=== PATIENT | female | born 1960 | race Hispanic/Latino ===

== ENCOUNTER 2024-09-16 21:40 | Emergency (ER) | payer OTHER ==
[2024-09-16] MEDS ORDERED: PROMETHAZINE 25 MG TABLET ONE (22:50)
[2024-09-16] MEDS ORDERED: CEPHALEXIN 250 MG CAP ONE (22:50)
[2024-09-16] MEDS ORDERED: LIDOCAINE 1% 20 ML MDV ONE (22:50)
[2024-09-16] MEDS ORDERED: IBUPROFEN 200 MG TAB PO ONE (22:50)
[2024-09-16] MEDS ORDERED: SMZ./TMP. 800/160 MG TABLET ONE (22:51)
[2024-09-16] MEDS ORDERED: IBUPROFEN 400 MG TAB ONE (22:51)
[2024-09-16] MEDS ORDERED: TRAMADOL HCL 50 MG TAB ONE (22:51)
[2024-09-16 23:08] LABS: Absolute Basophils 0.2 K/uL (0-0.5); Absolute Eosinophils 2.3 K/uL (0-0.5); Absolute Lymphocytes (CBC) 2.9 K/uL (0.7-4.9); Absolute Monocytes 0.8 K/uL (0.1-1.3); Absolute Neutrophil 7.2 K/uL (1.8-8.0); Basophils % 1.2 % (0-1.3); Eosinophils % 17.4 % (0-4.4); Hematocrit 38.8 % (36.0-45.0); Hemoglobin 12.9 g/dL (12.0-15.0); Lymphocytes % 21.4 % (15.3-44.8); MCH 30.2 pg (27.0-35.0); MCHC 33.3 g/dL (32.0-36.0); MCV 90.7 fL (80-100); MPV 8.5 fL (7.6-11.3); Monocytes % 5.9 % (3.3-12.3); Neutrophils % 54.1 % (41.7-73.7); Nucleated Red Blood Cells % 0.1 % (0-0); Platelets 303 thou/uL (152-406); RBC Red Blood Cell Count 4.28 M/uL (3.86-4.86); Red Cell Distribution Width 14.1 % (12.1-15.2)
[2024-09-16 23:25] LABS: Albumin 3.4 g/dL (3.4-5.0); Albumin/Globulin Ratio 0.9 (1.1-1.8); Anion Gap 6.4 mEq/L (5.0-15.0); Bilirubin Total 0.4 mg/dL (0.2-1.0); Globulin 3.7 g/dL (2.3-3.5); Potassium 3.4 mEq/L (3.5-5.1); Protein, Total 7.1 g/dL (6.4-8.2)
--- NOTE | 2024-09-17 00:13 | ER ---
Nurse's Notes [facility] Name: Marlen Pritchard Age: 63 yrs Sex: Female : 1960 Arrival Date: 09/16/2024 Time: 21:40 Bed 13 Private MD: Diagnosis: Cutaneous abscess of abdominal wall;abscess and cellulitis right lower abdominal skin Presentation: 09/16 21:51 Chief complaint: Patient states: she has had a bite on her right hip for approx one ap3 week. patient has been taking antibiotics from [facility]. patient states the bite is not getting better. Coronavirus screen: At this time, the client does not indicate any symptoms associated with coronavirus-19. Ebola Screen: No symptoms or risks identified at this time. Initial Sepsis Screen: Does the patient meet any 2 criteria? No. Patient's initial sepsis screen is negative. Does the patient have a suspected source of infection? No. Patient's initial sepsis screen is negative. Risk Assessment: Do you want to hurt yourself or someone else? Patient reports no desire to harm self or others. Onset of symptoms was September 09, 2024. 21:51 Method Of Arrival: Ambulatory ap3 21:51 Acuity: JUAN FRANCISCO 3 ap3 Triage Assessment: 21:53 Bite description: bite sustained to right inguinal area was sustained one week by an ap3 unknown animal, animal information: vaccination(s) is not applicable. General: Appears in no apparent distress. Behavior is calm, cooperative, appropriate for age. Pain: Complains of pain in right inguinal area. Neuro: Level of Consciousness is awake, alert, obeys commands, Oriented to person, place, time, situation, Appropriate for age. Cardiovascular: Patient's skin is warm and dry. Respiratory: Airway is patent Respiratory effort is even, unlabored, Respiratory pattern is regular, symmetrical. Derm: Wound noted right inguinal area. Historical: - Allergies: 21:52 No Known Allergies; ap3 - PMHx: 21:52 Diabetes mellitus; Hypertensive disorder; Hypercholesterolemia; ap3 - Immunization history:: Client reports receiving the 2nd dose of the Covid vaccine, Flu vaccine is up to date. - Infectious Disease History:: Denies. - Social history:: Smoking status: Patient denies any tobacco usage or history of. - Family history:: not pertinent. Screenin:54 [facility] ED Fall Risk Assessment (Adult) History of falling in the last 3 months, ap3 including since admission No falls in past 3 months (0 pts) Confusion or Disorientation No (0 pts) Intoxicated or Sedated No (0 pts) Impaired Gait No (0 pts) Mobility Assist Device Used No (0 pt) Altered Elimination No (0 pt) Score/Fall Risk Level 0 - 2 = Low Risk Oriented to surroundings, Maintained a safe environment, Educated pt \T\ family on fall prevention, incl call for assistance when getting out of bed, Assessed \T\ reinforced patient's understanding of fall precautions, Hourly rounding (assess needs \T\ fall precautionary measures) done, Used ambulatory aids as needed (educated on \T\ assisted with). Abuse screen: Denies threats or abuse. Nutritional screening: No deficits noted. Tuberculosis screening: No symptoms or risk factors identified. Assessment: 23:06 General: Appears in no apparent distress. comfortable, Behavior is calm, cooperative, rg5 appropriate for age. Pain: Pain currently is 7 out of 10 on a pain scale. Neuro: Level of Consciousness is awake, alert, obeys commands, Oriented to person, place, time. Cardiovascular: Denies chest pain, Patient's skin is warm and dry. Respiratory: Airway is patent Trachea midline Respiratory effort is even, unlabored, Respiratory pattern is regular. GI: Abdomen is round non-distended, Abd is soft and non tender. : No signs and/or symptoms were reported regarding the genitourinary system. EENT: No deficits noted. Derm: Skin has lesions on 2 cm Skin is red, Abscess located on right femoral area is half dollar sized. Musculoskeletal: Circulation, motion, and sensation intact. Range of motion:. 09/17 00:19 Reassessment: Patient and/or family updated on plan of care and expected duration. Pain rg5 level reassessed. Patient is alert, oriented x 3, equal unlabored respirations, skin warm/dry/pink. Patient states feeling better. Patient states symptoms have improved. Vital Signs: 09/16 21:51 BP 154 / 84; Pulse 72; Resp 18; Temp 97.8; Pulse Ox 100% ; Weight 72.12 kg; ap3 23:00 BP 149 / 75; Pulse 71; Resp 18; Temp 98; Pulse Ox 99% on R/A; Pain 7/10; rg5 09/17 00:19 BP 135 / 74; Pulse 70; Resp 17; Pulse Ox 99% on R/A; Pain 3/10; rg5 23:00 Pain Scale: Adult rg 09/17 00:19 Pain Scale: Adult rg5 Suresh Coma Score: 05:35 Eye Response: spontaneous(4). Motor Response: obeys commands(6). Verbal Response: sp4 oriented(5). Total: 15. ED Course: 09/16 21:45 Patient arrived in ED. gm2 21:50 Rod Nolasco MD is Attending Physician. sp4 21:52 Triage completed. ap3 21:55 Arm band placed on right wrist. ap3 22:33 Aram Ibarra, LISET is Primary Nurse. rg5 22:46 CBC with Diff Sent. mm11 22:46 CMP Sent. mm11 22:46 Inserted saline lock: 22 gauge in right antecubital area, using aseptic technique. mm11 Blood collected. Flushed with 10 mL NS. 23:06 Patient has correct armband on for positive identification. Placed in gown. Bed in low rg5 position. Call light in reach. Door closed. Noise minimized. Warm blanket given. 23:06 No provider procedures requiring assistance completed. rg5 09/17 00:20 Provided Education on: post er care. rg5 00:20 IV discontinued, bleeding controlled, No redness/swelling at site. Pressure dressing rg5 applied. Administered Medications: 09/16 23:04 Drug: Trimethoprim-Sulfamethoxazole PO (160 mg-800 mg (DS) 1 tablet PO once Route: PO; 09/17 00:18 Follow up: Response: No adverse reaction 09/16 23:04 Drug: Promethazine PO 25 mg PO once Route: PO; 09/17 00:19 Follow up: Response: No adverse reaction 09/16 23:04 Drug: Ibuprofen PO 600 mg PO once Route: PO; rg09/17 00:17 Follow up: Response: No adverse reaction; Pain is decreased 09/16 23:04 Drug: Cephalexin PO 500 mg PO once Route: PO; rg5 09/17 00:17 Follow up: Response: No adverse reaction [facility] 09/16 23:05 Drug: traMADol PO 100 mg PO once Route: PO; rg09/17 00:18 Follow up: Response: No adverse reaction; Pain is decreased rg5 00:00 Drug: Lidocaine Infiltration (1 %) 40 ml 20 ml Infiltration once; to bedside {Note: rg5 given by provider.} Volume: 20 ml; Route: Infiltration; Medication: 09/16 23:06 VIS not applicable for this client. rg5 Outcome: 09/17 00:12 Discharge ordered by . sp4 00:28 Discharged to home ambulatory, rg5 00:28 Condition: stable 00:28 Discharge instructions given to patient, Instructed on discharge instructions, follow up and referral plans. Demonstrated understanding of instructions, follow-up care, medications, Prescriptions given X 3, 00:28 Patient left the ED. rg5 Signatures: Bridgett Emmanuel RN RN ap3 Rod Nolasco MD MD sp4 Edna Chapman gm2 Arma Ibarra RN RN rg5 lesia dumont mm11
--- NOTE | 2024-09-17 00:13 | EDPHYS ---
Physician Documentation [facility] Name: Marlen Pritchard Age: 63 yrs Sex: Female : 1960 Arrival Date: 09/16/2024 Time: 21:40 Bed 13 Private MD: ED Physician Rod Nolasco HPI: 09/16 21:51 This 63 yrs old Female presents to ER via Unassigned with complaints of Insect sp4 Bite. 09/17 05:32 63-year-old female presents with complaint of right lower abdominal skin abscess. sp4 Patient reports redness swelling and tenderness. Also draining purulent debris. Historical: - Allergies: 09/16 21:52 No Known Allergies; ap3 - PMHx: 21:52 Diabetes mellitus; Hypertensive disorder; Hypercholesterolemia; ap3 - Immunization history:: Client reports receiving the 2nd dose of the Covid vaccine, Flu vaccine is up to date. - Infectious Disease History:: Denies. - Social history:: Smoking status: Patient denies any tobacco usage or history of. - Family history:: not pertinent. ROS: 09/17 05:32 Constitutional: Negative for fever, chills, and weight loss, positive for right lower sp4 abdominal skin abscess All other systems are negative, Exam: 05:35 Constitutional: This is a well developed, well nourished patient who is awake, alert, sp4 and in no acute distress. Head/Face: Normocephalic, atraumatic. Eyes: Pupils equal round and reactive to light, extra-ocular motions intact. Lids and lashes normal. Conjunctiva and sclera are not injected. Cornea within normal limits. Periorbital areas with no swelling, redness, or edema. ENT: Nares patent. No nasal discharge, no septal abnormalities noted. Tympanic membranes are normal and external auditory canals are clear. Oropharynx with no redness, swelling, or masses, exudates, or evidence of obstruction, uvula midline. Mucous membranes moist. Neck: Trachea midline, no thyromegaly or masses palpated, and no cervical lymphadenopathy. Supple, full range of motion without nuchal rigidity, or vertebral point tenderness. Chest/axilla: Normal chest wall appearance and motion. Nontender with no deformity. No lesions are appreciated. Cardiovascular: Regular rate and rhythm with a normal S1 and S2. No gallops, murmurs, or rubs. Normal PMI, no JVD. No pulse deficits. Respiratory: Lungs have equal breath sounds bilaterally, clear to auscultation and percussion. No rales, rhonchi or wheezes noted. No increased work of breathing, no retractions or nasal flaring. Abdomen/GI: Soft, with normal bowel sounds. No distension or tympany. No guarding or rebound. No evidence of tenderness throughout. There is right lower abdominal skin abscess close to the right groin crease Back: No spinal tenderness. No costovertebral tenderness. Skin: Warm, dry with normal turgor. Normal color with no rashes, there is significant cellulitis and draining abscess right lower abdominal skin close to the right groin MS/ Extremity: Pulses equal, no cyanosis. Neurovascular intact. Full, normal range of motion. Neuro: Awake and alert, GCS 15, oriented to person, place, time, and situation. Cranial nerves II-XII grossly intact. Motor strength 5/5 in all extremities. Sensory grossly intact. Psych: Awake, alert, with orientation to person, place and time. Behavior, mood, and affect are within normal limits Vital Signs: 09/16 21:51 BP 154 / 84; Pulse 72; Resp 18; Temp 97.8; Pulse Ox 100% ; Weight 72.12 kg; ap3 23:00 BP 149 / 75; Pulse 71; Resp 18; Temp 98; Pulse Ox 99% on R/A; Pain 7/10; rg5 09/17 00:19 BP 135 / 74; Pulse 70; Resp 17; Pulse Ox 99% on R/A; Pain 3/10; rg5 23:00 Pain Scale: Adult rg5 09/17 00:19 Pain Scale: Adult rg5 Suresh Coma Score: 05:35 Eye Response: spontaneous(4). Motor Response: obeys commands(6). Verbal Response: sp4 oriented(5). Total: 15. Procedures: 00:13 I \T\ D: Incision and drainage was performed for an abscess of the right right inguinal sp4 area Prepped with Betadine, alcohol, Anesthetized with 20 ml's 1% Lidocaine. Incised with #11 blade. Drained moderate amount purulent fluid. bloody fluid. Packed with sterile gauze, Dressing: sterile 4x4 gauze, the patient tolerated the procedure well, Advised to take packing out in 2 days . MDM: 09/16 22:52 Medical Screening Exam initiated sp4 09/17 20:10 Differential diagnosis: abscess, allergic reaction, cellulitis, insect bite. Data sp4 reviewed: vital signs, nurses notes, old medical records, lab test result(s). ED course: There is under good control. Abscess was drained and packed. Patient was advised to remove packing after 2 days . Prescribed cephalexin and Bactrim.. 09/16 22:02 Order name: CBC with Diff; Complete Time: 05:35 sp4 09/16 22:02 Order name: CMP; Complete Time: 00:10 sp4 09/17 00:23 Order name: CBC Smear Scan; Complete Time: 05:35 EDMS 09/16 22:01 Order name: Dressing - Wound; Complete Time: 00:18 sp4 09/16 22:01 Order name: Gloves, Sterile; Complete Time: 00:18 sp4 09/16 22:01 Order name: Setup Suture Tray; Complete Time: 00:18 sp4 09/16 22:02 Order name: Saline Lock; Complete Time: 22:46 sp4 Administered Medications: 09/16 23:04 Drug: Trimethoprim-Sulfamethoxazole PO (160 mg-800 mg (DS) 1 tablet PO once Route: PO; rg5 09/17 00:18 Follow up: Response: No adverse reaction rg5 09/16 23:04 Drug: Promethazine PO 25 mg PO once Route: PO; rg5 09/17 00:19 Follow up: Response: No adverse reaction rg5 09/16 23:04 Drug: Ibuprofen PO 600 mg PO once Route: PO; rg5 09/17 00:17 Follow up: Response: No adverse reaction; Pain is decreased rg5 09/16 23:04 Drug: Cephalexin PO 500 mg PO once Route: PO; rg5 09/17 00:17 Follow up: Response: No adverse reaction rg5 09/16 23:05 Drug: traMADol PO 100 mg PO once Route: PO; rg5 09/17 00:18 Follow up: Response: No adverse reaction; Pain is decreased rg5 00:00 Drug: Lidocaine Infiltration (1 %) 40 ml 20 ml Infiltration once; to bedside {Note: rg5 given by provider.} Volume: 20 ml; Route: Infiltration; Disposition Summary: 09/17/24 00:12 Discharge Ordered Notes: Location: Home sp4 Problem: new sp4 Symptoms: have improved sp4 Condition: Stable sp4 Diagnosis - Cutaneous abscess of abdominal wall sp4 - abscess and cellulitis right lower abdominal skin sp4 Followup: sp4 - With: Private Physician - When: 7 - 10 days - Reason: Recheck today's complaints Discharge Instructions: - Discharge Summary Sheet sp4 - Skin Abscess, [id number] sp4 Forms: - Patient Portal Instructions sp4 Prescriptions: - Cephalexin 500 mg Oral Capsule - take 1 capsule ORAL route every 12 hours for 10 days; 20 capsule; Refills: 0, sp4 Product Selection Permitted - Ibuprofen 600 mg Oral Tablet - take 1 tablet ORAL route every 6 hours As needed take with food; 30 tablet; sp4 Refills: 0, Product Selection Permitted - Bactrim DS 800-160 mg Oral Tablet - take 1 tablet ORAL route every 12 hours for 10 days; 20 tablet; Refills: 0, sp4 Product Selection Permitted Signatures: Dispatcher [employer] [facility] Bridgett Emmanuel RN RN ap3 Rod Nolasco MD MD sp4 Aram Ibarra RN RN rg5 Corrections: (The following items were deleted from the chart) 09/16 22:02 22:02 CBC+H.LAB.BRZ ordered. [facility] 22: 22:02 COMPREHENSIVE METABOLIC PANEL+C.LAB.BRZ ordered. [facility] 09/17 20:11 05:35 Constitutional: This is a well developed, well nourished patient who is awake, sp4 alert, and in no acute distress. Head/Face: Normocephalic, atraumatic. Eyes: Pupils equal round and reactive to light, extra-ocular motions intact. Lids and lashes normal. Conjunctiva and sclera are not injected. Cornea within normal limits. Periorbital areas with no swelling, redness, or edema. ENT: Nares patent. No nasal discharge, no septal abnormalities noted. Tympanic membranes are normal and external auditory canals are clear. Oropharynx with no redness, swelling, or masses, exudates, or evidence of obstruction, uvula midline. Mucous membranes moist. Neck: Trachea midline, no thyromegaly or masses palpated, and no cervical lymphadenopathy. Supple, full range of motion without nuchal rigidity, or vertebral point tenderness. Chest/axilla: Normal chest wall appearance and motion. Nontender with no deformity. No lesions are appreciated. Cardiovascular: Regular rate and rhythm with a normal S1 and S2. No gallops, murmurs, or rubs. Normal PMI, no JVD. No pulse deficits. Respiratory: Lungs have equal breath sounds bilaterally, clear to auscultation and percussion. No rales, rhonchi or wheezes noted. No increased work of breathing, no retractions or nasal flaring. Abdomen/GI: Soft, with normal bowel sounds. No distension or tympany. No guarding or rebound. No evidence of tenderness throughout. Back: No spinal tenderness. No costovertebral tenderness. Skin: Warm, dry with normal turgor. Normal color with no rashes, no lesions, and no evidence of cellulitis. MS/ Extremity: Pulses equal, no cyanosis. Neurovascular intact. Full, normal range of motion. Neuro: Awake and alert, GCS 15, oriented to person, place, time, and situation. Cranial nerves II-XII grossly intact. Motor strength 5/5 in all extremities. Sensory grossly intact. Psych: Awake, alert, with orientation to person, place and time. Behavior, mood, and affect are within normal limits sp4
[2024-09-17 00:23] LABS: Blood Morphology Comment NOT SEEN (NOT SEEN); Platelet Estimate ADEQ; White Blood Cell Scan OK (OK)
[2024-09-17 22:57] VITALS: TEMP 98; O2SAT 99
[2024-09-17 22:58] VITALS: BP 135/74
== END 2024-09-17 00:28 | disposition home or self-care (01) ==
LOC: ER 21:40
PROC: 0H97XZZ Drainage of Abdomen Skin, External Approach (ICD-10-PCS; principal; 2024-09-17)
DX: L02.211 Cutaneous abscess of abdominal wall (principal); L03.311 Cellulitis of abdominal wall
CPT/HCPCS: 85025; 36415; 80053; 99284; 10060; Q0169; J2003